=== PATIENT | female | born 1960 | race Caucasian/White ===

== ENCOUNTER 2023-05-25 12:44 | Oncology outpatient (recurring) (ONCR) | payer SELFPAY ==
[2023-05-25 15:51] LABS: Basophils % 0.6 %; Eosinophils # 0.1 10^3/uL (0.0-0.8); Lymphocytes # 2.3 10^3/uL (0.8-4.8); Lymphocytes % 35.6 %; Mean Corpuscular HGB Conc 32.8 g/dL (30-55); Mean Corpuscular Volume 94.5 fl (85-98); Mean Platelet Volume 11.2 fL (7.4-10.4); Monocytes # 0.5 10^3/uL (0.2-0.9); Monocytes % 7.5 %; Neutrophils # 3.43 10^3/uL (1.8-7.7); Neutrophils % 53.8 %; Nucleated Red Blood Cells % 0 %; Platelet Count 294 10^3/cmm (157-399); Red Blood Count 4.55 10^6/uL (3.85-5.65); Red Cell Distribution Width 12.7 % (12.1-15.1); White Blood Count 6.38 10^3/uL (3.29-11.43)
[2023-05-25 16:36] LABS: Hepatitis A Antibody IgM Non-Reactive (Nonreactive); Hepatitis B Core AB, Total Non-Reactive (Nonreactive); Hepatitis B Surface AB < 3.5 (11.5-1000); Hepatitis B Surface Antigen Non-Reactive (Nonreactive); Hepatitis C Virus Antibody Non-Reactive (Nonreactive)
[2023-05-25 16:47] LABS: Alanine Aminotransferase 18 U/L (0-33); Albumin Level 4.3 g/dL (3.5-5.2); Alkaline Phosphatase 119 U/L (35-105); Anion Gap 14.2 (5-19); Aspartate Amino Transferase 24 U/L (0-32); Blood Urea Nitrogen 19 mg/dL (8-23); Calcium 9.4 mg/dL (8.5-10.5); Carbon Dioxide 26 mmol/L (22-29); Chloride 105 mmol/L (98-107); Creatinine Clr Calc Pharmacy 85.3173; Glomerular Filtration Rate 73.2 mL/min (90-130); Glucose 98 mg/dL (65-115); Magnesium 2.2 mg/dL (1.7-2.3); Osmolality Calculated 294 mOsm/kg (285-295); Potassium 4.2 mmol/L (3.5-5.1); Sodium 141 mmol/L (136-145); Total Bilirubin 1.5 mg/dL (0.15-1.2); Total Protein 7.3 g/dL (6.6-8.7)
[2023-05-25 16:54] LABS: HIV 1 & 2 Antibody Non-Reactive (Non-Reactiv); HIV 1 & 2 Antigen Non-Reactive (Non-Reactiv)
[2023-05-25 18:16] LABS: Lactate Dehydrogenase 266 U/L (135-214)
[2023-05-26 09:19] LABS: PROTEIN, TOTAL 6.7 g/dL (6.1-8.1)
[2023-05-26 13:40] LABS: Leukemia Profile (BBPL) See Report; Lymphoma Profile (BBPL) See Report
[2023-05-26 14:45] LABS: KAPPA LIGHT CHAIN, FREE, SERUM 19.4 mg/L (3.3-19.4); KAPPA/LAMBDA LIGHT CHAINS FREE 1.19 (0.26-1.65); LAMBDA LIGHT CHAIN, FREE, SERU 16.3 mg/L (5.7-26.3)
[2023-05-27 09:12] LABS: ALPHA 1 GLOBULIN 0.3 g/dL (0.2-0.3); ALPHA 2 GLOBULIN 0.7 g/dL (0.5-0.9); BETA 1 GLOBULIN 0.4 g/dL (0.4-0.6); BETA 2 GLOBULIN 0.4 g/dL (0.2-0.5); GAMMA GLOBULIN 0.9 g/dL (0.8-1.7)
== END 2023-06-03 23:59 | disposition home or self-care (01) ==
PROVIDERS: PCP Nurse Practitioner Family; Visit Provider Internal Medicine
DX: C85.10 Unspecified B-cell lymphoma, unspecified site (principal)
CPT/HCPCS: 36415; 80053; 82570; 83010; 83615; 83735; 83883; 84155; 84156; 84165; 84166; 84550; 85025; 86334; 86335; 86618; 86631; 86632; 86666; 86705; 86706; 86709; 86753; 86803; 87340; 87798; 87806; 88184; 88185

== ENCOUNTER 2023-06-01 12:25 | Outpatient (CLI) | payer SELFPAY ==
--- NOTE | 2023-06-01 13:00 | PETR_ITS ---
PROCEDURE INFORMATION: Exam: PET/CT Skull Base to Mid-thigh Exam date and time: 06/01/2023 1:18 PM Age: 62 years old Clinical indication: Condition or disease; Primary cancer: Non hodgkins lymphoma; Initial oncological staging assessment LABS AND CLINICAL REPORTS: Glucose: 98 mg/dl Treatment strategy for malignancy (PET staging): Initial Staging (PI) TECHNIQUE: Imaging protocol: Following at least four-hour fasting and following the injection of radiopharmaceutical, low dose CT images were obtained. Then, PET images were obtained. Attenuation corrected images were constructed using the CT scan. Fused images of PET and CT were reviewed. The standardized uptake values (SUV) reported below are maximum values within a region of interest, expressed in gm/ml. Exam includes orbital meatal line to mid-thigh. Radiopharmaceutical: 13.9 mCi F-18 FDG (Fluorodeoxyglucose), IV. Time of imaging post radiopharmaceutical administration: 1 hour Injection site: Right antecubital COMPARISON: CT orbits 02/08/2023, CT cervical spine 06/18/2018, CT facial bones 06/18/2018 FINDINGS: Limitations: The examination is slightly technically suboptimal secondary to the scan to injection time outside of recommended parameters (45-75 minutes). Reported scan to injection time of 43 minutes. Injection to scan times outside of recommended parameters can result in decreased PET sensitivity and limit the utility of comparison of SUV values to prior or subsequent exams. Brain: Visualized brain has normal physiologic uptake. Pharynx: No abnormal uptake. Larynx: No abnormal uptake. Lungs, pleura and trachea: No abnormal uptake. Heart: Normal physiologic uptake. Mediastinal space: No abnormal uptake. Liver: No abnormal uptake. Gallbladder and bile ducts: No abnormal uptake. Pancreas: No abnormal uptake. Spleen: No abnormal uptake. Adrenal glands: No abnormal uptake. Kidneys and ureters: Normal physiologic uptake. Stomach and bowel: No abnormal uptake. Intraperitoneal and retroperitoneal spaces: No abnormal uptake. There is non radiotracer avid nonspecific mild mesenteric fat stranding. Vasculature: No abnormal uptake. Atherosclerotic changes are noted including within the coronary arteries. Lymph nodes: No abnormal uptake. No lymphadenopathy in the head, neck, chest, abdomen, pelvis, and extremities. Bones/joints: A focus of uptake in the region of the upper lip on the right is noted without a well-defined lesion on the CT images, SUV max 4.4 on PET series 12, image 23 adjacent to the maxilla. Assessment of this region is limited by dental hardware artifact. Subtle asymmetric uptake within the mid left sacrum is noted without a well-defined lesion on the CT images, SUV max 2.8 on series 3, image 203, likely physiologic. Soft tissues: There are small foci of uptake in the subcutaneous soft tissues in the visualized frontal scalp and bilateral periorbital regions bilaterally associated with possible regions of soft tissue density nodularity for example on the left along the inferior margin of the left orbit in the region of the inferior eyelid on series 3, image 16 measuring 3.3 x 1.2 cm, SUV max 4.3. There is an ovoid focus of soft tissue density in the subcutaneous fat of the proximal lateral left thigh measuring 1.4 x 0.8 cm on series 3, image 259, SUV max 2.7. METRICS: Mediastinal blood pool: SUV max 2.5 Liver uptake: SUV max 3.3 PET/PET skulltothigh INITIAL [id number] IMPRESSION: 1. Regions of subcutaneous soft tissue nodularity in the subcutaneous soft tissues of the frontal scalp and periorbital regions appears similar to the prior CT of 02/08/2023 with elevated uptake concerning for possible malignancy. Correlation with the site(s) of the known reported history of non-Hodgkin's lymphoma is recommended. 2. An additional focus of elevated uptake in the soft tissues adjacent to the right maxilla is noted without a definite correlating lesion on the CT images. This uptake may be artifactual, inflammatory or neoplastic in etiology. 3. A subcutaneous soft tissue density nodule in the lateral aspect of the proximal left thigh is noted with low-level uptake which may be inflammatory in nature. A malignant etiology is less likely but cannot be entirely excluded. 4. Additional nonurgent findings as detailed above.
== END 2023-06-01 12:26 | disposition home or self-care (01) ==
LOC: RAD 12:25
PROVIDERS: PCP Nurse Practitioner Family; Visit Provider Internal Medicine
DX: C85.90 Non-Hodgkin lymphoma, unspecified, unspecified site (principal)
CPT/HCPCS: 78815; A9552

== ENCOUNTER 2023-07-13 07:21 | Oncology outpatient (recurring) (ONCR) | payer SELFPAY ==
[2023-07-13 08:19] LABS: Basophils # 0.1 10^3/uL (0.0-0.1); Basophils % 0.8 %; Eosinophils # 0.2 10^3/uL (0.0-0.8); Eosinophils % 3.2 %; Hematocrit 44.5 % (36-47); Lymphocytes # 1.8 10^3/uL (0.8-4.8); Lymphocytes % 28.9 %; Mean Corpuscular HGB Conc 32.8 g/dL (30-55); Mean Corpuscular Hemoglobin 31.6 pg (27-33); Mean Corpuscular Volume 96.3 fl (85-98); Mean Platelet Volume 11.4 fL (7.4-10.4); Monocytes # 0.6 10^3/uL (0.2-0.9); Monocytes % 10.1 %; Neutrophils # 3.51 10^3/uL (1.8-7.7); Neutrophils % 56.4 %; Nucleated Red Blood Cells % 0 %; Platelet Count 243 10^3/cmm (157-399); Red Blood Count 4.62 10^6/uL (3.85-5.65); Red Cell Distribution Width 12.7 % (12.1-15.1); White Blood Count 6.23 10^3/uL (3.29-11.43)
[2023-07-13 08:32] LABS: Albumin Level 4.1 g/dL (3.5-5.2); Alkaline Phosphatase 105 U/L (35-105); Anion Gap 13.7 (5-19); Aspartate Amino Transferase 18 U/L (0-32); Blood Urea Nitrogen 21 mg/dL (8-23); Calcium 9.4 mg/dL (8.5-10.5); Carbon Dioxide 28 mmol/L (22-29); Chloride 103 mmol/L (98-107); Creatinine Clr Calc Pharmacy 75.8972; Globulin 2.5 g/dL (1.3-4.6); Glomerular Filtration Rate 63.9 mL/min (90-130); Glucose 108 mg/dL (65-115); Lactate Dehydrogenase 156 U/L (135-214); Magnesium 2.2 mg/dL (1.7-2.3); Osmolality Calculated 294 mOsm/kg (285-295); Potassium 4.7 mmol/L (3.5-5.1); Sodium 140 mmol/L (136-145); Total Bilirubin 1.2 mg/dL (0.15-1.2); Total Protein 6.6 g/dL (6.6-8.7)
[2023-07-13 08:44] LABS: Alanine Aminotransferase 17 U/L (0-33)
== END 2023-08-03 23:59 | disposition home or self-care (01) ==
PROVIDERS: PCP Nurse Practitioner Family; Visit Provider Internal Medicine
DX: Z53.9 Procedure and treatment not carried out, unspecified reason (principal); C85.10 Unspecified B-cell lymphoma, unspecified site
CPT/HCPCS: 36415; 80053; 83615; 83735; 84550; 85025

== ENCOUNTER 2023-08-27 04:23 | Emergency (ER) | payer SELFPAY ==
[2023-08-27 04:23] VITALS: BP 124/93; PULSE 112; RESP 20; TEMP 37.3; O2SAT 95; BMI 28.4
--- NOTE | 2023-08-27 04:27 | ED_ITS ---
HPI - General Adult 2 General: Chief complaint: General Medical Stated complaint: FALL Time Seen by Provider: 08/27/23 04:23 History of Present Illness: Patient presents to the ER with complaints of all over joint pain. Patient is had no overuse syndrome or trauma. This pain started about within the about the last week. This pain has been getting worse. The pain is worst in her bilateral hand joints. Patient was just recently diagnosed with Bendamustine/rituximab. Patient sees Dr. Dai for treatment. She called their office and she said they did not seem to interested in her pain as they told her to take [id number] cough and cold medicine this as this may be a virus. She says it is been getting worse she wanted a second opinion. She denies fever, chills, weight loss, night sweats, cough cold nausea vomiting diarrhea pain burning frequency with urination Review of Systems 2 General: Reports: 10 or more systems reviewed and unremarkable except in HPI and below PFSH ED 2 PFSH: Medical History B-cell lymphoma Social History Smoking and tobacco/nicotine status: former use of tobacco/nicotine Quit status (tobacco/nicotine): has quit using Year quit tobacco: 2012 Former quit date comment: tobacco use 15-20 years Physical Exam 2 Const: COMMON NORMALS: no acute distress, average body habitus, patient oriented x3, no limitations, healthy appearing, alert and well nourished HENMT: COMMON NORMALS: normocephalic, atraumatic, hearing grossly normal bilaterally, external ears normal, Normal external nose present, moist oral mucous membranes and oropharynx normal HEAD & SCALP: normocephalic and atraumatic NOSE: Normal external nose present EXTERNAL EAR: Yes external ears normal Neck/C-Spine: COMMON NORMALS: no JVD Chest: COMMONS NORMALS: normal inspection of the chest and normal palpation of entire chest wall Resp: COMMON NORMALS: normal respiratory effort, No retractions, No use of accessory muscles and clear to auscultation bilaterally AUSCULTATION: clear to auscultation bilaterally Cardio: COMMON NORMALS: no JVD, regular rhythm, S1 normal heart sound present, S2 normal heart sound present, No gallops present (Cardio), No clicks present (Cardio), No murmurs present (Cardio) and No rub (Cardio); negative for regular rate (Mildly tachycardic) RATE: abnormal rate (Mildly tachycardic) RHYTHM: regular rhythm HEART SOUNDS: S1 normal heart sound present and S2 normal heart sound present GI: COMMON NORMALS: Normal to inspection, nondistended, normoactive bowel sounds present, Soft to palpation, non-tender, No hepatosplenomegaly present and no masses PALPATION: Yes Soft to palpation and Yes No hepatosplenomegaly present Neuro: COMMON NORMALS: patient oriented x3 SENSORIUM/ORIENTATION: Yes alert Course 2 Vital Signs: Vital signs: Vital Signs Temperature 99.1 F 08/27/23 04:23 Pulse Rate 86 08/27/23 05:00 Respiratory Rate 18 08/27/23 05:00 Blood Pressure 107/66 08/27/23 05:00 Pulse Oximetry 92 08/27/23 05:00 Oxygen Delivery Me thod Room Air 08/27/23 05:00 MDM - General Adult Medical Decision Making Lab work was obtained included CBC CMP TSH CRP lactate dehydrogenase all of which was essentially benign. Urinalysis is still pending. Patient was given 30 mg of Toradol IV which she said did not seem to help much at all. Patient says she would just follow-up with her oncologist that is in [place]. Patient be discharged home. Lab Data 08/27/23 04:45 08/27/23 04:45 Laboratory Results WBC 9.74 10^3/uL (3.29-11.43) 08/27/23 04:45 RBC 4.01 10^6/uL (3.85-5.65) 08/27/23 04:45 Hgb 12.70 g/dL (11.27-16.99) 08/27/23 04:45 Hct 38.5 % (36-47) 08/27/23 04:45 MCV 96.0 fl (85-98) 08/27/23 04:45 MCH 31.7 pg (27-33) 08/27/23 04:45 MCHC 33.0 g/dL (30-55) 08/27/23 04:45 RDW 13.4 % (12.1-15.1) 08/27/23 04:45 Plt Count 184 10^3/cmm (157-399) 08/27/23 04:45 MPV 11.6 fL (7.4-10.4) H 08/27/23 04:45 Neut % (Auto) 82.1 % 08/27/23 04:45 Lymph % (Auto) 6.7 % 08/27/23 04:45 Bandera % (Auto) 8.8 % 08/27/23 04:45 Eos % (Auto) 1.8 % 08/27/23 04:45 Baso % (Auto) 0.2 % 08/27/23 04:45 Neut # (Auto) 7.99 10^3/uL (1.8-7.7) H 08/27/23 04:45 Lymph # (Auto) 0.7 10^3/uL (0.8-4.8) L 08/27/23 04:45 Bandera # (Auto) 0.9 10^3/uL (0.2-0.9) 08/27/23 04:45 Eos # (Auto) 0.2 10^3/uL (0.0-0.8) 08/27/23 04:45 Baso # (Auto) 0.0 10^3/uL (0.0-0.1) 08/27/23 04:45 Nucleated RBC % (auto) 0 % 08/27/23 04:45 Nucleated RBCs # 0.0 /100WBC 08/27/23 04:45 Sodium 136 mmol/L (136-145) 08/27/23 04:45 Potassium 3.7 mmol/L (3.5-5.1) 08/27/23 04:45 Chloride 104 mmol/L (98-107) 08/27/23 04:45 Carbon Dioxide 21 mmol/L (22-29) L 08/27/23 04:45 Anion Gap 14.7 (5-19) 08/27/23 04:45 BUN 15 mg/dL (8-23) 08/27/23 04:45 Creatinine 0.8 mg/dL (0.5-0.9) 08/27/23 04:45 GFR Calculation 73.2 mL/min (90-130) L 08/27/23 04:45 Glucose 149 mg/dL (65-115) H 08/27/23 04:45 Calculated Osmolality 286 mOsm/kg (285-295) 08/27/23 04:45 Calcium 8.7 mg/dL (8.5-10.5) 08/27/23 04:45 Magnesium 1.8 mg/dL (1.7-2.3) 08/27/23 04:45 Total Bilirubin 1.3 mg/dL (0.15-1.2) H 08/27/23 04:45 AST 36 U/L (0-32) H 08/27/23 04:45 ALT 36 U/L (0-33) H 08/27/23 04:45 Alkaline Phosphatase 112 U/L (35-105) H 08/27/23 04:45 Lactate Dehydrogenase 193 U/L (135-214) 08/27/23 04:45 C-Reactive Protein 82.1 mg/L (0.0-4.9) H 08/27/23 04:45 Total Protein 6.6 g/dL (6.6-8.7) 08/27/23 04:45 Albumin 3.6 g/dL (3.5-5.2) 08/27/23 04:45 Globulin 3.0 g/dL (1.3-4.6) 08/27/23 04:45 TSH 2.78 uIU/mL (0.27-4.20) 08/27/23 04:45 All radiology interpretation(s) finalized by discharge Discharge Plan Discharge Patient Disposition: Home Clinical Impression: Follicular lymphoma Arthralgia Qualifiers: Joint pain location: unspecified Qualified Code(s): M25.50 - Pain in unspecified joint Condition: Stable Prescriptions: No Action simvastatin 20 mg tablet 20 mg PO DAILY levothyroxine 100 mcg tablet 100 mcg PO DAILY citalopram 20 mg tablet 20 mg PO DAILY multivitamin Tablet 1 tab PO DAILY tramadol 50 mg tablet 50 mg PO BID PRN (Reason: pain) Qty: 60 0RF prednisone 20 mg tablet 60 mg PO DAILY 5 Days Qty: 15 0RF acyclovir 400 mg tablet 400 mg PO BID Qty: 60 2RF Discharge Orders: Discharge ED (Routine); Ordered 08/27/23 Ordered By: Boris North Referrals: Claudio Parson FNP [Primary Care Provider] - 1 week Patient Instructions: Arthralgia (ED) Activity Restrictions/Additional Instructions: Your evaluation in ER did not show any acute cause of your arthralgia. Your pain may be due to your follicular lymphoma or a side effect of the treatment for it. Please follow-up with your oncologist as they may have better recommendations. Cannot get a hold of them please call your family practice physician for further evaluation and treatment. Coding Level of Care Code ED Shirrer for Christiano Landin
[2023-08-27 04:30] VITALS: BP 117/80; PULSE 107; RESP 18; O2SAT 93
[2023-08-27 04:56] LABS: Basophils % 0.2 %; Eosinophils # 0.2 10^3/uL (0.0-0.8); Eosinophils % 1.8 %; Hematocrit 38.5 % (36-47); Lymphocytes # 0.7 10^3/uL (0.8-4.8); Lymphocytes % 6.7 %; Mean Corpuscular Hemoglobin 31.7 pg (27-33); Mean Platelet Volume 11.6 fL (7.4-10.4); Monocytes # 0.9 10^3/uL (0.2-0.9); Monocytes % 8.8 %; Neutrophils # 7.99 10^3/uL (1.8-7.7); Neutrophils % 82.1 %; Nucleated Red Blood Cells % 0 %; Platelet Count 184 10^3/cmm (157-399); Red Blood Count 4.01 10^6/uL (3.85-5.65); Red Cell Distribution Width 13.4 % (12.1-15.1); White Blood Count 9.74 10^3/uL (3.29-11.43)
[2023-08-27 05:00] VITALS: BP 107/66; PULSE 86; RESP 18; O2SAT 92
[2023-08-27] MEDS: ketorolac 30 mg/mL INJ IVP (05:04)
[2023-08-27 05:26] LABS: Alanine Aminotransferase 36 U/L (0-33); Albumin Level 3.6 g/dL (3.5-5.2); Alkaline Phosphatase 112 U/L (35-105); Anion Gap 14.7 (5-19); Aspartate Amino Transferase 36 U/L (0-32); Blood Urea Nitrogen 15 mg/dL (8-23); C Reactive Protein 82.1 mg/L (0.0-4.9); Calcium 8.7 mg/dL (8.5-10.5); Carbon Dioxide 21 mmol/L (22-29); Chloride 104 mmol/L (98-107); Creatinine Clr Calc Pharmacy 85.3173; Glomerular Filtration Rate 73.2 mL/min (90-130); Glucose 149 mg/dL (65-115); Lactate Dehydrogenase 193 U/L (135-214); Magnesium 1.8 mg/dL (1.7-2.3); Osmolality Calculated 286 mOsm/kg (285-295); Potassium 3.7 mmol/L (3.5-5.1); Sodium 136 mmol/L (136-145); Total Bilirubin 1.3 mg/dL (0.15-1.2); Total Protein 6.6 g/dL (6.6-8.7)
[2023-08-27 05:27] LABS: Thyroid Stimulating Hormone 2.78 uIU/mL (0.27-4.20)
[2023-08-27 05:30] VITALS: BP 109/70; PULSE 84; RESP 18; O2SAT 92
== END 2023-08-27 06:08 | disposition home or self-care (01) ==
PROVIDERS: Emergency Provider Emergency Medicine; PCP Nurse Practitioner Family
DX: M25.50 Pain in unspecified joint (principal); C82.90 Follicular lymphoma, unspecified, unspecified site; Z87.891 Personal history of nicotine dependence
CPT/HCPCS: 80053; 83615; 83735; 84443; 85025; 86140; 96374; 99284; J1885